=== PATIENT | female | born 1990 | race Caucasian/White ===

== ENCOUNTER 2022-01-03 07:19 | Outpatient (CLI) | payer OTHER ==
[~2022-01-03 07:19] MED LIST: KEFLEX500 MG PO; PEPCID20 MG PO
== END 2022-01-03 07:30 | disposition home or self-care (01) ==
LOC: RAD 07:19
PROVIDERS: ATTEND General Practice
DX: Z11.1 Encounter for screening for respiratory tuberculosis (principal); R05.9 Cough, unspecified; Z11.4 Encounter for screening for human immunodeficiency virus [HIV]; Z11.3 Encounter for screening for infections with a predominantly sexual mode of transmission; Z12.4 Encounter for screening for malignant neoplasm of cervix; Z12.11 Encounter for screening for malignant neoplasm of colon; Z13.0 Encounter for screening for diseases of the blood and blood-forming organs and certain disorders involving the immune mechanism; Z13.1 Encounter for screening for diabetes mellitus; Z13.220 Encounter for screening for lipoid disorders; Z13.228 Encounter for screening for other metabolic disorders; Z13.29 Encounter for screening for other suspected endocrine disorder

== ENCOUNTER 2022-12-18 14:20 | Emergency (ER) | payer OTHER ==
[~2022-12-18] VITALS: Ht 152.4 cm; Wt 57.2 kg
== END 2022-12-18 17:41 | disposition home or self-care (01) ==
LOC: ER 14:20
DX: M79.5 Residual foreign body in soft tissue (principal); W26.8XXA Contact with other sharp object(s), not elsewhere classified, initial encounter